=== PATIENT | female | born 1995 | race American Indian/Alaskan Native ===

== ENCOUNTER 2017-01-04 22:43 | Emergency (ER) | payer BC ==
[2017-01-04] MEDS ORDERED: Alum-Mag Hydrox-Simethicone Susp (30 mL) PO STA (23:30)
[2017-01-04 23:38] LABS: BASO # 0.1 K/uL (0.0-0.2); BASO % 0.8 % (0.0-2.0); EOS # 0.2 K/uL (0.0-0.7); EOS % 2.4 % (0.0-4.0); HEMATOCRIT 38.5 % (34.0-47.0); LYMPH # 3.5 K/uL (1.0-4.3); LYMPH % 39.7 % (20.0-40.0); MEAN CELL VOLUME 76.4 fL (81.0-99.0); MEAN CORPUSCULAR HEMOGLOBIN 24.9 pg (27.0-31.0); MEAN CORPUSCULAR HGB CONC 32.6 g/dL (33.0-37.0); MEAN PLATELET VOLUME 7.8 fL (7.2-11.7); MONO # 0.4 K/uL (0.0-0.8); RED CELL DISTRIBUTION WIDTH 14.7 % (11.5-14.5); WHITE BLOOD COUNT 8.9 K/uL (4.8-10.8)
[2017-01-04] MEDS ORDERED: Alum-Mag Hydrox-Simethicone Susp (30 mL) ONE (23:39)
[2017-01-04] MEDS ORDERED: Sodium Chloride 0.9% 50 ML IV ONE (23:39)
[2017-01-04 23:47] LABS: CHLORIDE 97 mmol/L (98-107); PARTIAL THROMBOPLASTIN TIME 35 SECONDS (21-34); POTASSIUM 3.9 mmol/L (3.6-5.2); SODIUM 137 mmol/L (132-148)
[2017-01-04 23:49] LABS: AST/SGOT 28 U/L (14-36); BILIRUBIN,TOTAL 0.5 mg/dL (0.2-1.3); CARBON DIOXIDE 26 mmol/L (22-30); GFR AFRICAN-AMERICAN > 60
[2017-01-04 23:50] LABS: ALB/GLOB RATIO 1.1 (1.0-2.1); ALKALINE PHOSPHATASE 69 U/L (38-126); ALT/SGPT 10 U/L (9-52); BLOOD UREA NITROGEN 13 mg/dL (7-17); CALCIUM 8.8 mg/dl (8.6-10.4); GLUCOSE,RANDOM 105 mg/dL (65-105); MAGNESIUM 1.9 mg/dL (1.6-2.3); TOTAL PROTEIN 7.7 g/dL (6.3-8.3)
[2017-01-05 00:08] LABS: T4 8.26 ug/dL (5.5-11.0)
[2017-01-05 00:21] LABS: THYROID STIMULATING HORMONE 6.51 mIU/L (0.46-4.68)
--- NOTE | 2017-01-05 00:36 | C.PDOC ---
Time Seen by Provider: 01/04/17 23:08 Chief Complaint (Nursing): Chest Pain History Per: Patient Onset/Duration Of Symptoms: Days (few) Current Symptoms Are (Timing): Still Present Severity: Moderate Quality: Pressure Associated Symptoms: Nausea. denies: Dyspnea, Diaphoresis, Syncope Modifying Factors: Other Indicated Below Exacerbating Factors: None Alleviating Factors: None Additional History Per: Prior Records Past Medical History Reviewed: Historical Data, Nursing Documentation, Vital Signs Vital Signs: Last Vital Signs Temp 97.9 F 01/04/17 22:53 Pulse 100 H 01/04/17 22:53 Resp 18 01/04/17 22:53 BP 133/91 H 01/04/17 22:53 Pulse Ox 96 01/04/17 22:53 - Medical History PMH: Hyperthyroidism Surgical History: No Surg Hx Family History: States: Unknown Family Hx - Social History Hx Tobacco Use: Yes ("Black and Milds") Hx Alcohol Use: No Hx Substance Use: No Review Of Systems Except As Marked, All Systems Reviewed And Found Negative. Constitutional: Negative for: Fever, Weakness Cardiovascular: Positive for: Palpitations (tonight) Respiratory: Negative for: Shortness of Breath, Hemoptysis Gastrointestinal: Negative for: Vomiting, Abdominal Pain Musculoskeletal: Negative for: Neck Pain, Back Pain, Leg Pain Skin: Negative for: Rash Neurological: Negative for: Weakness, Numbness, Seizures, Altered Mental Status Physical Exam - Physical Exam Appears: Non-toxic, No Acute Distress Skin: Normal Color, Warm, Dry, No Rash Head: Atraumatic, Normacephalic Eye(s): bilateral: PERRL, EOMI Neck: Normal ROM, Supple Chest: Symmetrical, No Deformity, No Tenderness, No Ecchymosis, No Subcutaneous Emphysema Cardiovascular: Rhythm Regular Respiratory: Normal Breath Sounds, No Accessory Muscle Use Gastrointestinal/Abdominal: Soft, No Tenderness Back: No CVA Tenderness Extremity: Normal ROM, No Pedal Edema, No Calf Tenderness Neurological/Psych: Oriented x3, Normal Motor, Normal Sensation ED Course And Treatment - Laboratory Results Result Diagrams: 01/04/17 23:35 01/04/17 23:35 Lab Interpretation: No Acute Changes Urine POC: Negative ECG: Interpreted By Me, Viewed By Me ECG Rhythm: Sinus Rhythm, Nonspecific Changes ECG Interpretation: No Acute Changes Rate From EC O2 Sat by Pulse Oximetry: 96 Pulse Ox Interpretation: Normal - Radiology CXR: Interpreted by Me, Viewed By Me CXR Interpretation: Yes: No Acute Disease Progress - Interventions Interventions:: Observation - Medications Administered Oral: Antacid Intravenous: Antiemetic, H-2 rosa maria - Data Reviewed Data Reviewed: Lab, Diagnostic imaging, EKG, Old records - Patient Status Patient status: Mostly improved - Continuity of Care Discussed patient case with:: Patient, Family-HIPPA compliant, ED Nurse - Patient Plan Patient Plan: Discharge, F/U with PCP Disposition Counseled Patient/Family Regarding: Studies Performed, Diagnosis, Need For Followup, Rx Given, Smoking Cessation - Disposition Disposition: HOME/ ROUTINE Disposition Time: 00:36 Condition: IMPROVED Additional Instructions: Follow up with your doctor this week for further evaluation and treatment. Return to the ER if you develop shortness of breath, dizziness, vomiting, pass out, worsening of symptoms or if you have any other concerns. Prescriptions: Famotidine [Pepcid] 20 mg PO BID #30 tab Instructions: Gastroesophageal Reflux Disease (ED) - Clinical Impression Clinical Impression: Chest discomfort
[2017-01-05 00:51] VITALS: BP 122/67; PULSE 85; RESP 17; TEMP 98.1; O2SAT 100
--- NOTE | 2017-01-05 08:27 | RAD ---
PROCEDURE: CHEST RADIOGRAPH, 1 VIEW HISTORY: Chest pain COMPARISON: None available. FINDINGS: LUNGS: Mild venous congestion. PLEURA: No pneumothorax or pleural fluid seen. CARDIOVASCULAR: Normal. OSSEOUS STRUCTURES: No significant abnormalities. VISUALIZED UPPER ABDOMEN: Normal. OTHER FINDINGS: None. IMPRESSION: Mild venous congestion.
--- NOTE | 2017-01-07 19:48 | CARD ---
APPROVED REPORT EKG Measurement Heart [id number] <Conclusion> Normal sinus rhythm Anterior infarct, age undetermined Abnormal ECG
== END 2017-01-05 00:52 | disposition home or self-care (01) ==
LOC: C.ER 22:43
DX: R07.89 Other chest pain (principal)
CPT/HCPCS: 71010; 80053; 83735; 84436; 84443; 84480; 84484; 84703; 85025; 85378; 85610; 85730; 93005; 96374; 99285; G0480; J2765

== ENCOUNTER 2017-08-01 17:09 | Emergency (ER) | payer BC ==
[2017-08-01 17:14] VITALS: RESP 17
[2017-08-01 17:52] LABS: RBC URINE 1 /hpf (0-3); URINE BILIRUBIN NEGATIVE (NEGATIVE); URINE BLOOD 3+ (NEGATIVE); URINE COLOR Yellow (YELLOW); URINE GLUCOSE (UA) NORMAL (Normal); URINE KETONE NEGATIVE (NEGATIVE); URINE LEUKOCYTE ESTERASE NEG Leu/uL (Negative); URINE PROTEIN NEGATIVE (NEGATIVE); WBC URINE 1 /hpf (0-5)
[2017-08-01 18:00] LABS: BASO # 0.1 K/uL (0.0-0.2); BASO % 0.8 % (0.0-2.0); EOS # 0.2 K/uL (0.0-0.7); EOS % 2.9 % (0.0-4.0); HEMATOCRIT 37.9 % (34.0-47.0); LYMPH # 2.5 K/uL (1.0-4.3); LYMPH % 31.7 % (20.0-40.0); MEAN CELL VOLUME 76.9 fL (81.0-99.0); MEAN CORPUSCULAR HEMOGLOBIN 25.3 pg (27.0-31.0); MEAN CORPUSCULAR HGB CONC 32.9 g/dL (33.0-37.0); MEAN PLATELET VOLUME 7.8 fL (7.2-11.7); MONO # 0.5 K/uL (0.0-0.8); MONO % 5.9 % (0.0-10.0); RED CELL DISTRIBUTION WIDTH 14.9 % (11.5-14.5)
--- NOTE | 2017-08-01 18:01 | C.PDOC ---
History Of Present Illness 21 year old female, with a history of Thyroid Disease, presents to the ED with complaints of an achy left chest pain, mostly at the chest wall, since yesterday. Patient reports pain was initially intermittent and is now constant. She notes no pain with deep breathing, however pain worsens with movement of the left arm. Patient works as a security business analyst but denies over use of the left arm or injuries. She notes her thyroid disease is well managed. Patient denies shortness of breath, cough, nausea, vomiting, or palpitation. Time Seen by Provider: 08/01/17 17:30 Chief Complaint (Nursing): Chest Pain History Per: Patient History/Exam Limitations: no limitations Onset/Duration Of Symptoms: Days (1 day ) Current Symptoms Are (Timing): Still Present Quality: Aching Associated Symptoms: denies: Nausea, Dyspnea, Diaphoresis, Syncope Modifying Factors: None Exacerbating Factors: Other (left arm movement ) Alleviating Factors: None Recent travel outside of the [place]: No Past Medical History Reviewed: Historical Data, Nursing Documentation, Vital Signs Vital Signs: Last Vital Signs Temp 98.1 F 08/01/17 17:14 Pulse 92 H 08/01/17 17:14 Resp 17 08/01/17 17:14 BP 124/87 08/01/17 17:14 Pulse Ox 99 08/01/17 18:06 - Medical History PMH: Hyperthyroidism, Hypothyroidism Family History: States: Unknown Family Hx - Social History Hx Tobacco Use: Yes ("Black and Milds") Hx Alcohol Use: No Hx Substance Use: No Review Of Systems Constitutional: Negative for: Fever, Chills Cardiovascular: Positive for: Chest Pain. Negative for: Palpitations Respiratory: Negative for: Cough, Shortness of Breath Gastrointestinal: Negative for: Nausea, Vomiting, Abdominal Pain, Diarrhea Physical Exam - Physical Exam Appears: Non-toxic, No Acute Distress, Other (Patient appears comfortable ) Skin: Warm, Dry Head: Atraumatic, Normacephalic Eye(s): bilateral: Normal Inspection, PERRL, EOMI Oral Mucosa: Moist Neck: Supple Chest: Symmetrical, No Deformity, Tenderness (tenderness ot the left chest wall musculature of the lateral pectoralis muscle and along the lower sternal border ) Cardiovascular: Rhythm Regular, No Murmur Respiratory: No Rales, No Rhonchi, No Wheezing, Other (clear to auscultation bilaterally ) Gastrointestinal/Abdominal: Soft, No Tenderness, No Distention, No Guarding, No Rebound Extremity: Normal ROM, No Tenderness, No Pedal Edema, No Calf Tenderness, Capillary Refill (good capillary refill, less than two seconds ), No Deformity, No Swelling Neurological/Psych: Oriented x3 ED Course And Treatment - Laboratory Results Result Diagrams: 08/01/17 17:56 08/01/17 17:56 Lab Interpretation: Normal ECG: Interpreted By Me, Viewed By Me ECG Rhythm: Sinus Rhythm ECG Interpretation: Normal O2 Sat by Pulse Oximetry: 99 (RA) Pulse Ox Interpretation: Normal - Radiology CXR: Interpreted by Me CXR Interpretation: Yes: No Acute Disease Progress Note: EKG, CXR, and labs were ordered. Patient was given motrin. Reevaluation Time: 18:37 Reassessment Condition: Improved Disposition Counseled Patient/Family Regarding: Studies Performed, Diagnosis, Need For Followup, Rx Given - Disposition Disposition: HOME/ ROUTINE Disposition Time: 18:39 Condition: IMPROVED Additional Instructions: Take Advil 2-3 tablets every 6 hours with food for pain if needed. Prescriptions: Cyclobenzaprine [Cyclobenzaprine HCl] 10 mg PO TID PRN #10 tab PRN Reason: Pain, Severe (8-10) Instructions: Chest Wall Pain (ED) Forms: [facility] (Armenian) - Clinical Impression Clinical Impression: Chest wall pain - Scribe Statement The provider has reviewed the documentation as recorded by the Scribe Josseline Mccray All medical record entries made by the Scribe were at my direction and personally dictated by me. I have reviewed the chart and agree that the record accurately reflects my personal performance of the history, physical exam, medical decision making, and the department course for this patient. I have also personally directed, reviewed, and agree with the discharge instructions and disposition.
[2017-08-01 18:12] LABS: CHLORIDE 102 mmol/L (98-107); POTASSIUM 3.9 mmol/L (3.6-5.2); SODIUM 132 mmol/L (132-148)
[2017-08-01 18:14] LABS: BILIRUBIN,TOTAL 0.6 mg/dL (0.2-1.3); GFR AFRICAN-AMERICAN > 60
[2017-08-01 18:15] LABS: ALB/GLOB RATIO 1.3 (1.0-2.1); ALKALINE PHOSPHATASE 75 U/L (38-126); ALT/SGPT 21 U/L (9-52); AST/SGOT 27 U/L (14-36); BLOOD UREA NITROGEN 7 mg/dL (7-17); CALCIUM 8.6 mg/dl (8.6-10.4); CARBON DIOXIDE 22 mmol/L (22-30); GLUCOSE,RANDOM 85 mg/dL (65-105); TOTAL PROTEIN 7.3 g/dL (6.3-8.3)
[2017-08-01 18:42] VITALS: BP 121/82; PULSE 78; TEMP 98.6; O2SAT 98
--- NOTE | 2017-08-02 08:54 | RAD ---
HISTORY: chest pain COMPARISON: 01/04/2017 TECHNIQUE: Chest PA and lateral FINDINGS: LUNGS: Mild venous congestion. Small nodular density projecting over the medial right lung apex likely represents confluence of shadows with ribs. PLEURA: No significant pleural effusion identified. No pneumothorax apparent. CARDIOVASCULAR: Normal. OSSEOUS STRUCTURES: No significant abnormalities. VISUALIZED UPPER ABDOMEN: Normal. OTHER FINDINGS: None. IMPRESSION: No active disease.
== END 2017-08-01 18:45 | disposition home or self-care (01) ==
LOC: C.ER 17:09
DX: R07.89 Other chest pain (principal)

== ENCOUNTER 2017-09-10 17:59 | Emergency (ER) | payer BC ==
[2017-09-10 18:10] VITALS: PULSE 89
[2017-09-10] MEDS ORDERED: Naproxen 550 mg Tab PO STA (19:09)
[2017-09-10] MEDS ORDERED: Naproxen 550 mg Tab PO ONE (19:20)
[2017-09-10 19:33] LABS: URINE BACTERIA RARE (<OCC); URINE BILIRUBIN NEGATIVE (NEGATIVE); URINE BLOOD NEGATIVE (NEGATIVE); URINE COLOR Yellow (YELLOW); URINE GLUCOSE (UA) NORMAL (Normal); URINE KETONE NEGATIVE (NEGATIVE); URINE LEUKOCYTE ESTERASE NEG Leu/uL (Negative); URINE PROTEIN NEGATIVE (NEGATIVE); WBC URINE 2 /hpf (0-5)
--- NOTE | 2017-09-10 20:25 | C.PDOC ---
History Of Present Illness 22 year old female presents to the ER with a complaint of lower back pain for the past 2 days that worsens with movement. Denies falls, injuries, abdominal pain, nausea, vomiting, diarrhea, dysuria, and hematuria. Time Seen by Provider: 09/10/17 18:33 Chief Complaint (Nursing): Female Genitourinary History Per: Patient History/Exam Limitations: no limitations Onset/Duration Of Symptoms: Days Current Symptoms Are (Timing): Still Present Recent travel outside of the [place]: No Past Medical History Reviewed: Historical Data, Nursing Documentation, Vital Signs Vital Signs: Last Vital Signs Temp 98.4 F 09/10/17 20:37 Pulse 89 09/10/17 20:37 Resp 18 09/10/17 20:37 BP 123/84 09/10/17 20:37 Pulse Ox 100 09/10/17 22:00 - Medical History PMH: Graves' Disease, Hyperthyroidism, Hypothyroidism, Chronic Kidney Disease Family History: States: Unknown Family Hx - Social History Hx Tobacco Use: Yes ("Black and Milds") Hx Alcohol Use: Yes Hx Substance Use: No - Immunization History Hx Tetanus Toxoid Vaccination: No Hx Influenza Vaccination: No Hx Pneumococcal Vaccination: No Review Of Systems Except As Marked, All Systems Reviewed And Found Negative. Musculoskeletal: Positive for: Back Pain (Lower back) Physical Exam - Physical Exam Appears: Non-toxic, No Acute Distress, Other (Comfortable) Skin: Normal Color, Warm, Dry Head: Atraumatic, Normacephalic Eye(s): bilateral: Normal Inspection Oral Mucosa: Moist Chest: Symmetrical, No Tenderness Cardiovascular: Rhythm Regular Respiratory: Normal Breath Sounds, No Rales, No Rhonchi, No Wheezing Gastrointestinal/Abdominal: Soft, No Tenderness Back: No CVA Tenderness, No Vertebral Tenderness, Paraspinal Tenderness (Lumbar at L3-L5) Neurological/Psych: Oriented x3, Normal Speech ED Course And Treatment O2 Sat by Pulse Oximetry: 100 (Room air) Pulse Ox Interpretation: Normal Progress Note: Urinalysis ordered, results were positive for UTI. Naproxen administered for pain with relief, patient started on cipro to treat UTI and instructed to follow up with PMD. Disposition Counseled Patient/Family Regarding: Studies Performed, Diagnosis, Need For Followup, Rx Given - Disposition Referrals: [facility] at [facility] [Outside] Disposition: HOME/ ROUTINE Disposition Time: 20:20 Condition: STABLE Additional Instructions: FOLLOW UP WITH YOUR DOCTOR/CLINIC IN 1-2 DAYS USE MEDICATIONS DIRECTED RETURN TO ER IF SYMPTOMS WORSEN Prescriptions: Ciprofloxacin [Cipro] 1 tab PO BID #14 tab Cyclobenzaprine [Cyclobenzaprine HCl] 10 mg PO BID PRN #15 tab PRN Reason: Muscle Spasm Naproxen 375 mg PO BID PRN #20 tablet PRN Reason: pain Instructions: Urinary Tract Infection in Women (ED), Acute Low Back Pain (ED) Forms: [employer] (Costa Rican) Print Language: CENTRAL AFRICAN - Clinical Impression Clinical Impression: Low back pain, UTI (urinary tract infection) - Scribe Statement The provider has reviewed the documentation as recorded by the Scribe Josh Hunt All medical record entries made by the Marixaibvelvet were at my direction and personally dictated by me. I have reviewed the chart and agree that the record accurately reflects my personal performance of the history, physical exam, medical decision making, and the department course for this patient. I have also personally directed, reviewed, and agree with the discharge instructions and disposition.
[2017-09-10 20:38] VITALS: BP 123/84; RESP 18; TEMP 98.4
[2017-09-10 22:33] VITALS: O2SAT 100
== END 2017-09-10 20:38 | disposition home or self-care (01) ==
LOC: C.ER 17:59
DX: N39.0 Urinary tract infection, site not specified (principal); M54.5 Low back pain; N18.9 Chronic kidney disease, unspecified; Z87.891 Personal history of nicotine dependence

== ENCOUNTER 2018-12-17 20:29 | Emergency (ER) | payer BC ==
[2018-12-17 21:00] VITALS: BP 128/66; PULSE 91; RESP 18; TEMP 98.5; O2SAT 100
--- NOTE | 2018-12-17 22:59 | C.PDOC ---
History Of Present Illness Patient left without being seen, prior to my evaluation. Time Seen by Provider: 12/17/18 21:45 Chief Complaint (Nursing): Palpitations History Per: Patient Recent travel outside of the [place]: No Additional History Per: Patient Past Medical History Reviewed: Historical Data, Nursing Documentation, Vital Signs Vital Signs: Last Vital Signs Temp 98.5 F 12/17/18 20:37 Pulse 91 H 12/17/18 20:37 Resp 18 12/17/18 20:37 BP 128/66 12/17/18 20:37 Pulse Ox 100 12/17/18 20:37 - Medical History PMH: Graves' Disease, Hyperthyroidism, Hypothyroidism, Chronic Kidney Disease Surgical History: No Surg Hx Family History: States: Unknown Family Hx - Social History Hx Tobacco Use: Yes ("Black and Milds") Hx Alcohol Use: Yes Hx Substance Use: No - Immunization History Hx Tetanus Toxoid Vaccination: No Hx Influenza Vaccination: No Hx Pneumococcal Vaccination: No Review Of Systems Review Of Systems: ROS cannot be obtained secondary to pt's inabilty to answer questions. (LWBS) Physical Exam - Physical Exam Additional Physical Exam Comments: Patient left without being seen, prior to my evaluation. ED Course And Treatment O2 Sat by Pulse Oximetry: 100 (ON RA) Pulse Ox Interpretation: Normal Disposition - Disposition Disposition: LEFT W/O BEING SEEN - ER ONLY Disposition Time: 23:00 Condition: GOOD Forms: [facility] ([place] Islander) - Clinical Impression Clinical Impression: History of elopement from health care facility - Scribe Statement The provider has reviewed the documentation as recorded by the Scribe Leonard Melissa All medical record entries made by the Scribe were at my direction and personally dictated by me. I have reviewed the chart and agree that the record accurately reflects my personal performance of the history, physical exam, medical decision making, and the department course for this patient. I have also personally directed, reviewed, and agree with the discharge instructions and disposition.
== END 2018-12-17 22:09 | disposition left against medical advice (07) ==
LOC: C.ER 20:29
DX: Z02.89 Encounter for other administrative examinations (principal); R00.2 Palpitations

== ENCOUNTER 2019-02-01 19:54 | Emergency (ER) | payer BC ==
[2019-02-01 20:04] VITALS: BP 127/96; PULSE 89; TEMP 99.6; O2SAT 96
--- NOTE | 2019-02-01 20:31 | C.PDOC ---
Chief Complaint (Nursing): Cough, Cold, Congestion Past Medical History Vital Signs: Last Vital Signs Temp 99.6 F 02/01/19 19:58 Pulse 89 02/01/19 19:58 Resp 18 02/01/19 19:58 BP 127/96 H 02/01/19 19:58 Pulse Ox 96 02/01/19 19:58 - Medical History PMH: Graves' Disease, Hyperthyroidism, Hypothyroidism, Chronic Kidney Disease Family History: States: Unknown Family Hx - Social History Hx Tobacco Use: Yes ("Black and Milds") Hx Alcohol Use: Yes Hx Substance Use: No - Immunization History Hx Tetanus Toxoid Vaccination: No Hx Influenza Vaccination: No Hx Pneumococcal Vaccination: No ED Course And Treatment O2 Sat by Pulse Oximetry: 96 Disposition Counseled Patient/Family Regarding: Diagnosis, Need For Followup, Rx Given - Disposition Referrals: [facility] [Outside] Disposition: HOME/ ROUTINE Disposition Time: 20:40 Condition: IMPROVED Additional Instructions: Use meds as prescribed cold compress to eyes follow up in clinic return to ED if symptoms worsen Prescriptions: Azelastine/Fluticasone [Dymista] 1 spr NS BID #1 bottle Levocetirizine Dihydrochloride [Xyzal] 5 mg PO DAILY #30 tablet Olopatadine 0.1% Opht [Patanol 5 Ml] 1 drop OU BID PRN #1 bottle PRN Reason: Itching / Pruritus Pseudoephedrine HCl [Sudafed] 30 mg PO BID PRN #30 tablet PRN Reason: Headache Instructions: Sinus Headache (DC), Seasonal Allergies (DC) - Clinical Impression Clinical Impression: Sinus headache, Seasonal allergies
[2019-02-01 20:55] VITALS: RESP 20
--- NOTE | 2019-02-01 21:38 | C.PDOC ---
History Of Present Illness 23 y/o female comes in to ED complaining of seasonal allergies. Patient complains of eye redness, congestion, and headache. She states she tried over the counter eyedrops for her eyes but with no improvement. Also took zyrtec without any relief. Patient denies any fever, chills, chest pain, SOB, cough, dizziness, nausea, vomiting, abdominal pain, or any other URI symptoms. Chief Complaint (Nursing): Cough, Cold, Congestion History Per: Patient History/Exam Limitations: no limitations Onset/Duration Of Symptoms: Days Current Symptoms Are (Timing): Still Present Past Medical History Reviewed: Historical Data, Nursing Documentation, Vital Signs Vital Signs: Last Vital Signs Temp 99.6 F 02/01/19 19:58 Pulse 89 02/01/19 19:58 Resp 20 02/01/19 20:54 BP 127/96 H 02/01/19 19:58 Pulse Ox 96 02/01/19 20:50 - Medical History PMH: Graves' Disease, Hyperthyroidism, Hypothyroidism, Chronic Kidney Disease Family History: States: No Known Family Hx - Social History Hx Tobacco Use: Yes ("Black and Milds") Hx Alcohol Use: Yes Hx Substance Use: No - Immunization History Hx Tetanus Toxoid Vaccination: No Hx Influenza Vaccination: No Hx Pneumococcal Vaccination: No Review Of Systems Constitutional: Negative for: Fever, Chills Eyes: Positive for: Redness (bilateral) ENT: Positive for: Nose Congestion Cardiovascular: Negative for: Chest Pain Respiratory: Negative for: Cough, Shortness of Breath Gastrointestinal: Negative for: Nausea, Vomiting, Abdominal Pain Skin: Negative for: Rash Neurological: Positive for: Headache. Negative for: Dizziness Physical Exam - Physical Exam Appears: Non-toxic, No Acute Distress Skin: Warm, Dry Head: Atraumatic, Normacephalic Eye(s): bilateral: Other (conjunctival injection) Ear(s): Bilateral: Normal Oral Mucosa: Moist Throat: Normal, No Erythema, No Exudate Neck: Supple Cardiovascular: Rhythm Regular, No Murmur Respiratory: Normal Breath Sounds, No Rales, No Rhonchi, No Wheezing Extremity: Bilateral: Atraumatic, Normal ROM Neurological/Psych: Oriented x3, Normal Speech ED Course And Treatment O2 Sat by Pulse Oximetry: 96 (RA) Pulse Ox Interpretation: Normal Medical Decision Making Medical Decision Making: Plan: --Benadryl PO --Pepcid PO --Sudafed PO -- patient notes improvement stable for discharge Disposition Counseled Patient/Family Regarding: Studies Performed, Diagnosis, Need For Followup, Rx Given - Disposition Referrals: [facility] [Outside] Disposition: HOME/ ROUTINE Disposition Time: 20:50 Condition: IMPROVED Additional Instructions: Use meds as prescribed cold compress to eyes follow up in clinic return to ED if symptoms worsen Prescriptions: Azelastine/Fluticasone [Dymista] 1 spr NS BID #1 bottle Levocetirizine Dihydrochloride [Xyzal] 5 mg PO DAILY #30 tablet Olopatadine 0.1% Opht [Patanol 5 Ml] 1 drop OU BID PRN #1 bottle PRN Reason: Itching / Pruritus Pseudoephedrine HCl [Sudafed] 30 mg PO BID PRN #30 tablet PRN Reason: Headache Instructions: Seasonal Allergies (DC), Sinus Headache (DC) Forms: [employer] ([employer]) - Clinical Impression Clinical Impression: Sinus headache, Seasonal allergies - PA / DIRECTOR OF RESEARCH / Resident Statement MD/DO has reviewed & agrees with the documentation as recorded. - Scribe Statement The provider has reviewed the documentation as recorded by the Marixaibvelvet Stinson All medical record entries made by the Asya were at my direction and personally dictated by me. I have reviewed the chart and agree that the record accurately reflects my personal performance of the history, physical exam, medical decision making, and the department course for this patient. I have also personally directed, reviewed, and agree with the discharge instructions and disposition.
== END 2019-02-01 20:54 | disposition home or self-care (01) ==
LOC: C.ER 19:54
DX: J30.2 Other seasonal allergic rhinitis (principal); R51 Headache